=== PATIENT | male | born 1965 | race Two or more races ===

== ENCOUNTER 2024-08-17 17:28 | Emergency (ER) | payer MEDICAID, SELFPAY ==
[2024-08-17 18:09] VITALS: BP 130/79; PULSE 100; RESP 16; TEMP 36.9; O2SAT 97; BMI 28.2
--- NOTE | 2024-08-17 18:19 | XR_ITS ---
Examination: Duplex scan of the lower extremity, unilateral right complete Date and time of exam: August 27, 2024 at 2008 hrs. Indications: Right leg swelling beginning one month ago Technique: Duplex scan of the extremity veins using B-mode/grayscale imaging and Doppler spectral analysis and color flow Attention is directed to internal echogenicity, compression and augmentation involving these veins, color flow assessment, spectral analysis Findings: Major deep venous structures in the extremity demonstrate normal course and caliber. There is no evidence of deep vein thrombosis. Normal color flow and spectral analysis Impression: Negative for DVT..
--- NOTE | 2024-08-17 18:19 | PD.EDRME ---
Rapid Medical Screening Exam RME Arrival date/time: 08/17/24 17:28 58M with history of HTN and DM presents to ED with 2 days of RLE swelling and numbness w/o fall/trauma. Patient denies pain and open wound. Chief Complaint: Ankle/Foot Injury Time Seen by Provider: 08/17/24 18:04 Vital signs: Vital Signs Temperature 98.5 F 08/17/24 18:09 Pulse Rate 100 08/17/24 18:09 Respiratory Rate 16 08/17/24 18:09 Blood Pressure 130/79 08/17/24 18:09 Pulse Oximetry (%) 97 08/17/24 18:09 Oxygen Delivery Method Room Air 08/17/24 18:09
--- NOTE | 2024-08-17 18:57 | PD.EDANKLE ---
Lower Extremity Injury RME/HPI General Chief Complaint: Ankle/Foot Injury Stated Complaint: RIGHT FOOT SWOLLEN X 2 DAYS Time Seen by Provider: 08/17/24 18:04 Arrival date/time: 08/17/24 17:28 RME / HPI RME / HPI Narrative: 58M with history of HTN and DM presents to ED with 2 days of RLE swelling and numbness w/o fall/trauma. Patient denies pain and open wound. Patient denies any fever denies any other complaints. Patient was seen by PCP and was referred for further management to rule out DVT. Related Data Home Medications ?Medication ?Instructions ?Recorded ?Confirmed atorvastatin 40 mg tablet 40 mg PO QDAY 09/01/23 11/03/23 cholecalciferol (vitamin D3) 100 1,000 unit PO QDAY 09/01/23 11/03/23 mcg (4,000 unit) capsule sitagliptin phos 50 mg-metformin 1 tab PO BID 09/01/23 11/03/23 ER 1,000 mg tablet,extend rel 24h mp (Janumet XR) folic acid 1 mg tablet 1 mg PO QDAY 09/04/23 11/03/23 furosemide 20 mg tablet (Lasix) 20 mg PO QDAY 09/04/23 11/03/23 lisinopril 10 mg tablet 10 mg PO QDAY 09/04/23 11/03/23 metoprolol succinate 25 mg 25 mg PO QDAY 09/04/23 11/03/23 tablet,extended release 24 hr nifedipine 30 mg tablet,extended 30 mg PO QDAY 09/04/23 11/03/23 release 24 hr Previous Rx's ?Medication ?Instructions ?Recorded clindamycin HCl 300 mg capsule 300 mg PO TID #30 caps 08/17/24 Allergies Allergy/AdvReac Type Severity Reaction Status Date / Time No Known Allergies Allergy Verified 11/06/23 07:35 Review of Systems Review of Systems Narrative Review of Systems: Review of system reviewed and within normal limits except mentioned in HPI ED Exam Narrative Physical exam: VITAL SIGNS: Reviewed. GENERAL APPEARANCE: Alert and interactive, follows commands, no acute distress, HEAD AND FACE: Non-traumatic. ENT: PERRL, pink conjunctivitis, eyelid no trauma, Mucous membrane moist. NECK: Supple, nontender, no nuchal rigidity. CHEST: No tenderness, no crepitus, no paradoxical movement, no retractions. LUNGS: Clear, well ventilated, symmetric, no rales, no wheezing, no ronchi, no stridor, good breath sounds bilaterally. HEART: Regular rate, regular rhythm, no murmur, no gallops. ABDOMEN: Soft, positive bowel sounds, nondistended, no guarding, nontender, no rebound, no masses, RECTAL: Deferred. GENITAL: Deferred. NEUROLOGICAL: Gross motor function intact sensory function intact, Appropriate for age. MUSCULOSKELETAL: low back nontender, full range of motion. EXTREMITIES: Right lower leg swelling, nontender, full range of motion. SKIN: Color pink, dry, no rash, no lacerations, no abrasions, no contusions. LYMPHATICS: Deferred. Course Quality Measures none Orders Category Date Time Status US venous doppler LE RT Stat Exams 08/17/24 18:19 Completed Clindamycin [Cleocin] Med 08/17/24 21:49 Discontinued 300 mg PO X1 ONE Vital Signs Vital signs: Vital Signs Temperature 98.5 F 08/17/24 18:09 Pulse Rate 100 08/17/24 18:09 Respiratory Rate 16 08/17/24 18:09 Blood Pressure 130/79 08/17/24 18:09 Pulse Oximetry (%) 97 08/17/24 18:09 Oxygen Delivery Method Room Air 08/17/24 18:09 Extremity Injury, Lower MDM Narrative MDM Narrative:: 58M with history of HTN and DM presents to ED with 2 days of RLE swelling and numbness w/o fall/trauma. Patient denies pain and open wound. Patient denies any fever denies any other complaints. Patient was seen by PCP and was referred for further management to rule out DVT. Ultrasound of the right lower leg is negative for DVT. Patient received clindamycin p.o. in the emergency room. Patient appears nontoxic and hemodynamically stable. Patient discharged home and instructed to follow-up with primary care provider in 24 to 48 hours. Instructed to return to the emergency department immediately if worsening of symptoms Patient data External records reviewed:: None Clinical information provided by:: patient Social determinants that could affect healthcare access:: none Patient has the following chronic illnesses:: None How is presenting disease/condition affected by chronic disease/condition?: no chronic disease Evaluation data The following diagnostics were reviewed and interpreted by me:: radiology exam(s) Lab and/or radiology exams considered but not ordered:: None Interpretation Summary: Ultrasound of the right lower leg is negative for DVT Medications / Prescriptions Medications or Prescriptions considered but not ordered:: None Medication administrations:: Medication Administration History Discontinued Medications Clindamycin HCl (Clindamycin 150 Mg Capsule) 300 mg PO X1 ONE Stop: 08/17/24 21:50 Clindamycin Consultations Consultation(s) initiated? (list below): No Diagnosis Extremity Injury, Lower Differential Diagnosis: other (Leg swelling, DVT, cellulitis) Most likely diagnosis given after review of the tests above:: Leg cellulitis Admission Indicated Admission indicated?: not indicated Admission Request Was there a request for admission?: No Disposition Plan Disposition Plan: Discharge Discharge Attestation Discharge Attestation: The patient and all family members were given an opportunity to ask questions and understood the discharge instructions. Discharge instructions specifically effects, indications for sooner follow up or return to the emergency department, and the expected course of current diagnosis. Patient condition: Stable Discharge Plan Plan Patient Disposition: HOME (Self Care) Disposition Comment: stable Prescriptions/Referrals Prescriptions/Med Rec: New clindamycin HCl 300 mg capsule 300 mg PO TID Qty: 30 0RF No Action atorvastatin 40 mg Tablet 40 mg PO QDAY Janumet XR 50-1,000 mg Tablet, Er Multiphase 24 Hr 1 tab PO BID Vitamin D3 100 mcg (4,000 unit) Capsule 1,000 unit PO QDAY nifedipine 30 mg Tablet Extended Release 24hr 30 mg PO QDAY lisinopril 10 mg Tablet 10 mg PO QDAY folic acid 1 mg Tablet 1 mg PO QDAY furosemide [Lasix] 20 mg Tablet 20 mg PO QDAY metoprolol succinate 25 mg Tablet Extended Release 24 Hr 25 mg PO QDAY Referrals: No Primary/Family,Physician [Primary Care Provider] - In 1 week Problem List Clinical Impression: Cellulitis of leg Patient/Caregiver Discharge Instructions Discharge Activity: activity as tolerated Education Materials: ED Cellulitis Additional Instructions: Thank you for the opportunity for serving you today. You are stable for discharged . You are advised to: Follow-up with your PCP in 1 to 2 days Return to ED for worsening of symptoms Increase oral fluids Take medication as prescribed Elevate your legs as needed Wear compression stocking to decrease the swelling in the morning removed During the night Print Language: Gabonese Stand Alone Forms: Leonie Award Info., Patient Portal Info Letter YARY/MINDI Supervising Physician YARY/MINDI Supervising Physician: MD Kyler
[2024-08-17 20:16] VITALS: BP 140/85; PULSE 85; RESP 17; TEMP 36.9; O2SAT 97
[2024-08-17 21:00] VITALS: BP 150/82; PULSE 94; RESP 18; O2SAT 96
[2024-08-17 22:00] VITALS: BP 151/93; PULSE 93; RESP 18; O2SAT 97
[2024-08-17] MEDS: CLINDAMYCIN 150 MG CAPSULE 300 MG PO (22:02)
== END 2024-08-17 22:18 | disposition home or self-care (01) ==
PROVIDERS: Emergency Provider Emergency Medicine
DX: L03.115 Cellulitis of right lower limb (principal); E11.9 Type 2 diabetes mellitus without complications; I10 Essential (primary) hypertension
CPT/HCPCS: 93971; 99284; A9270